=== PATIENT | male | born 1940 | race Caucasian/White ===

== ENCOUNTER 2017-01-09 09:52 | Emergency (ER) | payer OTHER ==
[~2017-01-09] VITALS: Ht 182.9 cm; Wt 92.6 kg
[~2017-01-09 09:52] MED LIST: ASPIRIN81 M2 PO; BUPROPION XL150 MG PO; FIBERCON625 MG PO; FISH OIL PO; LISINOPRIL-HCT1 EAC3 PO; MELATONIN PO; MULTIVITAMIN PO; PRESERVISION PO; PRIMIDONE50 MG PO; SIMVASTATIN40 MG PO; TAMSULOSIN HCL0.4 MG PO
[2017-01-09 12:51] VITALS: BP 163/91
== END 2017-01-09 12:53 | disposition home or self-care (01) ==
LOC: EME 09:52
DX: S40.011A Contusion of right shoulder, initial encounter (principal); S40.021A Contusion of right upper arm, initial encounter; W10.9XXA Fall (on) (from) unspecified stairs and steps, initial encounter; F03.90 Unspecified dementia, unspecified severity, without behavioral disturbance, psychotic disturbance, mood disturbance, and anxiety; E78.5 Hyperlipidemia, unspecified; I10 Essential (primary) hypertension; F32.9 Major depressive disorder, single episode, unspecified; Z79.82 Long term (current) use of aspirin; Z87.891 Personal history of nicotine dependence
CPT/HCPCS: 72040; 73030; 73090; 73110; 99281; 99284; J1885

== ENCOUNTER 2017-02-02 06:35 | Emergency (ER) | payer OTHER ==
[~2017-02-02] VITALS: Ht 182.9 cm; Wt 93.1 kg
[2017-02-02] MEDS ORDERED: ARICEPT10 MG PO (06:58)
[2017-02-02] MEDS ORDERED: ALBUTEROL2.5 MG/3 M IH (06:59)
[2017-02-02] MEDS ORDERED: FIBERCON625 MG PO (07:00)
[2017-02-02] MEDS ORDERED: MELOXICAM7.5 MG PO (07:01)
[2017-02-02] MEDS ORDERED: NAPROXEN500 MG PO (07:01)
[2017-02-02] MEDS ORDERED: NORCO 5/3251 TABLET PO (08:52)
[2017-02-02 10:00] VITALS: BP 140/69
== END 2017-02-02 12:00 | disposition home or self-care (01) ==
LOC: EME 06:35
PROC: 2W3MX1Z Immobilization of Left Lower Extremity using Splint (ICD-10-PCS; principal; 2017-02-02)
DX: S82.302A Unspecified fracture of lower end of left tibia, initial encounter for closed fracture (principal); S50.01XA Contusion of right elbow, initial encounter; S54.01XA Injury of ulnar nerve at forearm level, right arm, initial encounter; W10.9XXA Fall (on) (from) unspecified stairs and steps, initial encounter; E78.5 Hyperlipidemia, unspecified; I10 Essential (primary) hypertension; F32.9 Major depressive disorder, single episode, unspecified; N40.0 Benign prostatic hyperplasia without lower urinary tract symptoms; Z79.82 Long term (current) use of aspirin; Z87.891 Personal history of nicotine dependence
CPT/HCPCS: 72040; 73080; 73590; 73610; 73630; 99281; 99284; J3010